=== PATIENT | male | born 1965 | race Caucasian/White ===

== ENCOUNTER 2017-07-24 15:34 | Emergency (ER) | payer SELFPAY ==
[2017-07-24 15:35] VITALS: BP 173/79; PULSE 93; RESP 17; TEMP 98.5; O2SAT 98
[2017-07-24 15:55] VITALS: BP_SYST 70; PULSE 78; RESP 18; O2SAT 98
[2017-07-24] MEDS ORDERED: ceFAZolin 2 GM PREMIX 50 ML IV ONE (16:00)
[2017-07-24] MEDS ORDERED: LIDOCAINE HCL 1% PF 30 ML VIAL INFIL ONE (16:00)
[2017-07-24] MEDS ORDERED: TETANUS/DIPHTHERIA TOXOID ADULT 0.5 ML VIAL IM ONE (16:00)
--- NOTE | 2017-07-24 16:11 | PD ---
HPI Chief Complaint: laceration Time Seen by Provider: 15:50 Travel History International Travel<30 days: No Contact w/Intl Traveler<30days: No Traveled to known affect area: No History of Present Illness HPI [id number] male presents for evaluation laceration to the medial proximal left fifth finger. It was sustained prior to arrival when the patient was using a table saw to cut a piece of wood. He has mild pain, aching, worse with movement. Denies numbness, tingling, or range of motion limitation, weakness. Last tetanus vaccination unknown. No other complaints. PFSH Social History Alcohol Use: Yes Tobacco Use: Yes Allergies-Medications (Allergen,Severity, Reaction): Coded Allergies: No Known Allergies (Unverified , 07/24/17) Reported Meds & Prescriptions Reported Meds & Active Scripts Active Keflex (Cephalexin) 500 Mg Cap 500 Mg PO Q8H 5 Days Review of Systems Musculoskeletal: Positive: Pain, No: Limited ROM Skin: Positive Other (positive for laceration, bleeding) Physical Exam Narrative GENERAL: Well-nourished male in no acute distress SKIN: Warm and dry. 2 cm laceration to the proximal left fifth finger. HEAD: Atraumatic. Normocephalic. EYES: Pupils equal and round. No scleral icterus. No injection or drainage. ENT: No nasal bleeding or discharge. Mucous membranes pink and moist. NECK: Trachea midline. No JVD. CARDIOVASCULAR: Regular rate and rhythm. No murmur appreciated. RESPIRATORY: No accessory muscle use. Clear to auscultation. Breath sounds equal bilaterally. MUSCULOSKELETAL: Skin as noted above. No obvious bony deformity, distal sensation intact in the medial lateral aspect of the finger. Full range of motion, muscle strength. Capillary refill less than 2 seconds. NEUROLOGICAL: Awake and alert. No obvious cranial nerve deficits. Motor grossly within normal limits. Normal speech. Data Data Last Documented VS Vital Signs Date Time Temp Pulse Resp B/P (MAP) Pulse Ox O2 Delivery O2 Flow Rate FiO2 07/24/17 15:55 78 18 70/ 98 07/24/17 15:35 98.5 Room Air Orders Orders Finger ([id number]) (07/24/17 ) Tetanus/Diphtheria Tox Adult (Tetanus/Di (07/24/17 16:00) Cefazolin 2 Gm Premix (Ancef 2 Gm Premix (07/24/17 16:00) Lidocaine Pf 1% Inj (Xylocaine-Mpf 1% In (07/24/17 16:00) Splint Or Brace Apply/Monitor (07/24/17 16:34) Ed Discharge Order (07/24/17 16:34) [facility] Medical Decision Making Medical Screen Exam Complete: Yes Emergency Medical Condition: Yes Medical Record Reviewed: Yes Differential Diagnosis Cutaneous laceration, neurovascular injury, tendon laceration, open fracture Narrative Course 51-year-old male here with a laceration to the medial proximal left fifth finger. IV Ancef initiated. Neurovascularly he is intact. He has no weakness. The wound was anesthetized and irrigated and explored and there is no evidence of tendon damage. X-ray imaging reveals no bony abnormality. Tetanus status updated. The laceration was repaired with sutures, he verbally consented. Finger splint applied. He is stable for discharge. Procedures Procedure Narrative LACERATION LOCATION: Left fifth finger LENGTH: 2 cm NUMBER OF STITCHES/ANJALI: 8 REPAIR: The area of the laceration was prepped with Betadine and sterilely draped. The laceration was infiltrated with 1% lidocaine. The wound was copiously irrigated and explored without evidence of foreign body, tendon injury or neurovascular injury. The wound was closed using 4-0 PROLENE simple interrupted. This was a single layer repair. A sterile dressing was applied. The patient was advised to keep the dressing clean and dry. Patient tolerated the procedure well. Diagnosis Primary Impression: Finger laceration Qualified Codes: S61.217A - Laceration without foreign body of left little finger without damage to nail, initial encounter Additional Instructions: Keep the wound clean and dry for 24 hours. Then wash daily with soap and water and apply antibiotic cream, clean bandages twice daily. Minimize use of left fifth finger. Return in approximately 12-16 days for suture removal. Med/Other Pt SpecificInfo: Prescription(s) given, Wound Care Scripts Cephalexin (Keflex) 500 Mg Cap 500 MG PO Q8H for Infection for 5 Days, #15 CAP 0 Refills Prov: Williams Lucas MD 07/24/17 Disposition: 01 DISCHARGE HOME Condition: Stable Jamie Montoya Jul 24, 2017 16:10
--- NOTE | 2017-07-24 16:15 | RADRPT ---
EXAM DATE/TIME: 07/24/2017 15:52 [facility] COMPARISON: No previous studies available for comparison. INDICATIONS : Pain and laceration left 5th finger MEDICAL HISTORY : None. SURGICAL HISTORY : None. ENCOUNTER: Initial ACUITY: 1 day PAIN SCORE: 8/10 LOCATION: Left 5th finger FINDINGS: Three views of the left hand fifth digit demonstrate no fracture or dislocation. Mineralization is wi thin normal limits and there is no significant arthropathy. No radiopaque foreign body is identified. There is soft tissue irregularity at the base of the fifth digit medially which may represent a lace ration. CONCLUSION: No radiopaque foreign body is identified. There is no acute osseous abnormality seen. Rohith Jalloh MD on July 24, 2017 at 16:12 Board Certified Radiologist. This report was verified electronically.
[2017-07-24] MEDS ORDERED: CEPH-460 PO (16:36)
[2017-07-24] MEDS ORDERED: NAPR500T2 PO (17:46)
== END 2017-07-24 18:16 | disposition home or self-care (01) ==
LOC: NEPE 15:34
DX: S61.217A Laceration without foreign body of left little finger without damage to nail, initial encounter (principal); W31.2XXA Contact with powered woodworking and forming machines, initial encounter; Z23 Encounter for immunization; Z72.0 Tobacco use
CPT/HCPCS: 12001; 73140; 90471; 90714; 96374; 99284; J0690